=== PATIENT | female | born 1955 | race Caucasian/White ===

== ENCOUNTER 2016-11-22 08:26 | Outpatient (CLI) | payer OTHER | END 2016-11-22 08:27 | disposition home or self-care (01) | DX: M85.88 Other specified disorders of bone density and structure, other site (principal); Z79.899 Other long term (current) drug therapy ==

== ENCOUNTER 2016-11-22 08:48 | Outpatient (CLI) | payer OTHER | END 2016-11-22 08:49 | disposition home or self-care (01) | DX: M17.0 Bilateral primary osteoarthritis of knee (principal) ==

== ENCOUNTER 2017-02-21 13:57 | Outpatient (CLI) | payer OTHER ==
--- NOTE | 2017-02-22 20:12 | Mammography Report ---
DIGITAL SCREENING MAMMOGRAM: 02/21/2017 CLINICAL INDICATION: A 61-year-old with history of benign left breast biopsy for screening. COMPARISON: 02/2016, 11/2014, 11/2013, 10/2012, 10/2011, 10/2010, 09/2009, 06/2008 TECHNIQUE: Routine CC and MLO projections were obtained of the breasts. FINDINGS: Parenchymal tissue within both breasts is heterogeneously dense, which may lower the sensi tivity of mammography; however, there are no dominant masses, suspicious microcalcifications, or seco ndary signs of malignancy. In comparison to the previous studies, there are no significant changes. ASSESSMENT: NO MAMMOGRAPHIC EVIDENCE OF MALIGNANCY. NO SIGNIFICANT INTERVAL CHANGES. RECOMMENDATION: Screening mammography is recommended annually. BIRADS category 1 - negative. STANDARD QUALIFYING STATEMENTS 1. This examination was reviewed with the aid of Computed-Aided Detection (CAD). 2. A negative or benign imaging report should not delay biopsy if clinically suspicious findings are present. Consider surgical consultation if warranted. More than 5% of cancers are not identified by i maging. 3. Dense breasts may obscure an underlying neoplasm. JOB #: [id number] EXT JOB #:[id number]
== END 2017-02-21 13:58 | disposition home or self-care (01) ==
LOC: DI.S 13:57
PROVIDERS: ATTEND Registered Nurse
DX: Z12.31 Encounter for screening mammogram for malignant neoplasm of breast (principal)
CPT/HCPCS: 77067

== ENCOUNTER 2018-02-28 09:48 | Outpatient (CLI) | payer OTHER ==
--- NOTE | 2018-03-03 15:55 | Mammography Report ---
Procedure Date: 02/28/2018 Accession Number: [id number] / [id number] Procedure: LIZANDRO - Screening Mammo Dig Bilat CPT Code: FULL RESULT: EXAM: Screening Mammo Dig Bilat DATE: 02/28/2018 10:11 AM CLINICAL HISTORY: 62-year-old female with history of left breast surgery with benign results. TECHNIQUE: Bilateral CC and MLO views were obtained. COMPARISON: 02/21/2017, 02/22/2016, 12/02/2014, 11/20/2013. FINDINGS: The breasts demonstrate heterogeneously dense fibroglandular parenchyma bilaterally. No suspicious masses, clustered microcalcifications, or regions of architectural distortion are identified. IMPRESSION: Negative examination RECOMMENDATION: Routine annual screening unless otherwise clinically indicated. BIRADS CATEGORY 1: Negative STANDARD QUALIFYING STATEMENTS: 1. This examination was reviewed with the aid of Computer-Aided Detection (CAD). 2. A negative or benign imaging report should not delay biopsy if clinically suspicious findings are present. Consider surgical consultation if warrented. More than 5% of cancers are not identified by imaging. 3. Dense breasts may obscure an underlying neoplasm.
== END 2018-02-28 09:49 | disposition home or self-care (01) ==
LOC: DI 09:48
PROVIDERS: ATTEND Registered Nurse
DX: Z12.31 Encounter for screening mammogram for malignant neoplasm of breast (principal)
CPT/HCPCS: 77067

== ENCOUNTER 2019-08-31 08:23 | Outpatient (CLI) | payer OTHER ==
--- NOTE | 2019-08-31 10:12 | DEXA Report ---
Reason: AGE RELATED OSTEOPOROSIS W/O PATH FRAC Procedure Date: 08/31/2019 Accession Number: [id number] / [id number] Procedure: DEX - Dexa Spine and/or Hip CPT Code: Final Report FULL RESULT: EXAM: Dexa Spine and/or Hip DATE: 08/31/2019 8:41 AM CLINICAL HISTORY: History of osteopenia. History of steroid use and thyroid replacement therapy. History of Boniva treatment. TECHNIQUE: Dual energy x-ray absorptiometry (DXA) was performed on a [employer] System. Regions measured are the AP Spine, femoral neck, and if needed forearm. COMPARISON: 11/22/2016 In accordance with the International Society for Clinical Densitometry (ISCD) guidelines, data from previous exams may be reanalyzed using current recommendations and techniques. This is done to allow a more accurate basis for comparison with the current study. FINDINGS: The data for the lumbar spine is as follows: BMD (g/cm/cm) T-SCORE Z-SCORE REGION L1 0.960 -1.4 -1.1 L2 1.033 -1.4 -1.1 L3 1.079 -1.0 -0.7 L4 1.129 -0.6 -0.3 TOTAL 1.055 -1.0 -0.8 NOTE: All evaluable vertebrae are used for classification The data for the hip is as follows: BMD (g/cm/cm) T-SCORE Z-SCORE REGION Neck 0.877 -1.2 -0.5 TOTAL 1.024 0.1 0.4 NOTE: The femoral neck or total proximal femur, whichever is lowest, is used for classification. DXA RESULTS SUMMARY: Spine SCAN DATE AGE BMD CHANGE VS CHANGE VS PREVIOUS PREVIOUS % 08/31/2019 [age] 1.055 0.006 0.6 11/22/2016 61.3 1.049 * Denotes significant change at the 95% confidence level. Denotes dissimilar scan types or analysis methods. DXA RESULTS SUMMARY: Hip SCAN DATE AGE BMD CHANGE VS CHANGE VS PREVIOUS PREVIOUS % 08[age]31/2019 64.1 1.024 -0.012 -1.2 11/22/2016 61.3 1.036 * Denotes significant change at the 95% confidence level. Denotes dissimilar scan types or analysis methods. IMPRESSION: THE WHO CLASSIFICATION BASED ON THE INTERNATIONAL REFERENCE STANDARD IS OSTEOPENIA, REFERENCE LEFT FEMORAL NECK. THE FRACTURE RISK IS INCREASED. RECOMMENDATION: Patients with diagnosis of osteoporosis or osteopenia should have regular bone mineral density assessment. For those eligible for Medicare, routine testing is allowed once every 2 years. Testing frequency can be increased for patients who have rapidly progressing disease or for those who are receiving medical therapy to restore bone mass. COMMENT: World Health Organization (WHO) definitions for osteoporosis and osteopenia: NORMAL BMD: T-score at -1.0 or higher, fracture risk is low OSTEOPENIA BMD: T-score between -1.0 and -2.5, fracture risk is increased. OSTEOPOROSIS BMD: T-score at -2.5 or lower, fracture risk is high. National Osteoporosis Foundation recommends: 1. Obtain adequate dietary calcium (at least 1200 mg per day) and vitamin D (400-800 international units per day). 2. Participate, as appropriate, in regular weightbearing and muscle-strengthening exercise. 3. Avoid tobacco use and reduce alcohol and caffeine intake. 4. For more detailed information see the website at www.NOF.org.
== END 2019-08-31 08:24 | disposition home or self-care (01) ==
LOC: DI 08:23
PROVIDERS: ATTEND Registered Nurse
DX: M85.89 Other specified disorders of bone density and structure, multiple sites (principal)
CPT/HCPCS: 77080

== ENCOUNTER 2019-08-31 08:23 | Outpatient (CLI) | payer OTHER ==
--- NOTE | 2019-08-31 15:02 | Mammography Report ---
Reason: ROUTINE MAMMO Procedure Date: 08/31/2019 Accession Number: [id number] / [id number] Procedure: LIZANDRO - Screening Mammo w/Reed CPT Code: Final Report FULL RESULT: EXAM: Screening Mammo w/Reed DATE: 08/31/2019 9:07 AM CLINICAL HISTORY: History of left breast surgery. For routine screening. TECHNIQUE: (B) - Bilateral CC and MLO views were obtained. COMPARISON: 02/28/2018, 02/21/2017, 02/22/2016, 12/02/2014, 11/20/2013, 10/23/2012, 11/06/2011, 10/16/2011, 10/10/2010 and 09/30/2009 PARENCHYMAL PATTERN: (D) - The breasts demonstrate heterogeneously dense fibroglandular parenchyma bilaterally. FINDINGS: No significant interval change. There are no suspicious masses, calcifications, or areas of distortion. Nodular densities in both breasts are becoming more apparent due to increasing fatty replacement of the breast tissue. IMPRESSION: Negative examination. BI-RADS category 1. RECOMMENDATION: (ANNUAL) - Recommend routine annual screening mammography. BI-RADS CATEGORY: (1) - Negative. STANDARD QUALIFYING STATEMENTS: 1. This examination was not reviewed with the aid of Computer-Aided Detection (CAD). 2. A negative or benign imaging report should not preclude biopsy if clinically suspicious findings are present. 3. Dense breasts may obscure an underlying neoplasm. 4. This examination was reviewed with the aid of 3D breast imaging (tomosynthesis).
== END 2019-08-31 08:24 | disposition home or self-care (01) ==
LOC: DI 08:23
PROVIDERS: ATTEND Registered Nurse
DX: Z12.31 Encounter for screening mammogram for malignant neoplasm of breast (principal)
CPT/HCPCS: 77063; 77067

== ENCOUNTER 2020-09-08 12:40 | Outpatient (CLI) | payer OTHER ==
--- NOTE | 2020-09-09 09:54 | Mammography Report ---
BILATERAL DIGITAL SCREENING MAMMOGRAM 3D/2D: 09/08/2020 CLINICAL: Routine screening. Comparison is made to exams dated: 08/31/2019 mammogram, 02/28/2018 mammogram, and 02/21/2017 mammogram - [facility]. The tissue of both breasts is heterogeneously dense. This may lower the sensitivity of mammography. No significant masses, calcifications, or other findings are seen in either breast. There has been no significant interval change. IMPRESSION: NEGATIVE There is no mammographic evidence of malignancy. A 1 year screening mammogram is recommended. This exam was interpreted at Station ID: [id number]. NOTE: For mammograms, a report in lay terms will be sent to the patient. Approximately 15% of breast malignancies will not be visualized mammographically. In the management of a palpable breast mass, a negative mammogram must not discourage biopsy of a clinically suspicious lesion. Electronically Signed By: Matias Ramirez M.D. ar/penrad:09/08/2020 15:59:35 ACR BI-RADS Category 1: Negative 3341F PARENCHYMAL PATTERN: (D) - The breast(s) demonstrate(s) heterogeneously dense fibroglandular laine tineo. BI-RADS CATEGORY: (1) - 1 RECOMMENDATION: (ANNUAL) - Recommend routine annual screening mammography. [id number] 1 year screening LATERALITY: (B)
== END 2020-09-08 12:41 | disposition home or self-care (01) ==
LOC: DI.N 12:40
PROVIDERS: ATTEND Registered Nurse
DX: Z12.31 Encounter for screening mammogram for malignant neoplasm of breast (principal)

== ENCOUNTER 2022-01-03 09:47 | Outpatient (CLI) | payer MEDICARE, OTHER ==
--- NOTE | 2022-01-03 13:02 | Mammography Report ---
BILATERAL DIGITAL SCREENING MAMMOGRAM 3D/2D: 01/03/2022 CLINICAL: Routine screening. Comparison is made to exams dated: 09/08/2020 mammogram, 08/31/2019 mammogram, 02/28/2018 mammogram, an d 02/21/2017 mammogram - [facility]. There are scattered fibroglandular elements in both breasts. No significant masses, calcifications, or other findings are seen in either breast. There has been no significant interval change. IMPRESSION: NEGATIVE There is no mammographic evidence of malignancy. A 1 year screening mammogram is recommended. This exam was interpreted at Station ID: [id number]. NOTE: For mammograms, a report in lay terms will be sent to the patient. Approximately 15% of breast malignancies will not be visualized mammographically. In the management of a palpable breast mass, a negative mammogram must not discourage biopsy of a clinically suspicious lesion. Electronically Signed By: Quinton Almonte M.D. aty/penrad:01/03/2022 10:38:42 ACR BI-RADS Category 1: Negative 3341F PARENCHYMAL PATTERN: (A) - The breast(s) demonstrate(s) scattered fibroglandular densities. BI-RADS CATEGORY: (1) - 1 RECOMMENDATION: (ANNUAL) - Recommend routine annual screening mammography. [id number] 1 year screening LATERALITY: (B)
== END 2022-01-03 09:48 | disposition home or self-care (01) ==
LOC: DI.S 09:47
PROVIDERS: ATTEND Registered Nurse
DX: Z12.31 Encounter for screening mammogram for malignant neoplasm of breast (principal)

== ENCOUNTER 2023-01-04 09:21 | Outpatient (CLI) | payer MEDICARE, OTHER ==
--- NOTE | 2023-01-04 10:34 | DEXA Report ---
PROCEDURE: Dexa Spine and/or Hip INDICATIONS: OSTEOPOROSIS TECHNIQUE: Dual energy x-ray absorptiometry (DXA) was performed on a [employer] System. Regions measur ed are the AP Spine, femoral neck, and if needed forearm. COMPARISON: 08/31/2019, 11/22/2016 FINDINGS: Lumbar Spine: Bone Mineral Density 1.1 g/cm/cm,T score -0.7. Since the most recent prior study, there has been a s tatistically significant increase in bone mineral density by XXX percent. Left Femoral Neck: Bone Mineral Density 0.9 g/cm/cm, T score -0.9. Left Hip: Bone Mineral Density 1.0 g/cm/cm,T score 0.1. There has been no statistically significant change in b one mineral density since the prior study. (T score greater or equal to -1.0: NORMAL) (T score from -1.1 to -2.4: OSTEOPENIA) (T score less than or equal to -2.5 to: OSTEOPOROSIS) Impression: By WHO criteria, this patient has normal bone density. Interval statistical increase in bone minteral density of the lumbar spine. No statistical interval c hange in bone minteral density of the hip. Patients with diagnosis of osteoporosis or osteopenia should have regular bone mineral density assess ment. For those eligible for Medicare, routine testing is allowed once every 2 years. Testing frequ ency can be increased for patients who have rapidly progressing disease or for those who are receivin g medical therapy to restore bone mass. Reviewed by: Darrick Ivy on 01/04/2023 9:33 AM MICHELLE Approved by: Darrick Ivy on 01/04/2023 9:33 AM MICHELLE Station ID: [id number]
== END 2023-01-04 09:22 | disposition home or self-care (01) ==
LOC: DI 09:21
PROVIDERS: ATTEND Registered Nurse
DX: M81.0 Age-related osteoporosis without current pathological fracture (principal)

== ENCOUNTER 2023-01-04 09:21 | Outpatient (CLI) | payer MEDICARE, OTHER ==
--- NOTE | 2023-01-08 08:43 | Mammography Report ---
BILATERAL DIGITAL SCREENING MAMMOGRAM 3D/2D: 01/04/2023 CLINICAL: Routine screening. Comparison is made to exams dated: 01/03/2022 mammogram, 09/08/2020 mammogram, 08/31/2019 mammogram, mammogram, 02/21/2017 mammogram, and 02/22/2016 mammogram - [facility]. There are scattered areas of fibroglandular density in both breasts (category b / 25%-50% glandular t issue). No significant masses, calcifications, or other findings are seen in either breast. There has been no significant interval change. IMPRESSION: NEGATIVE There is no mammographic evidence of malignancy. A 1 year screening mammogram is recommended. Based on the Tyrer Cuzick model (a risk assessment model) the patients lifetime risk is 5.6% and her 10 year risk is 2.8%. According to the ACR, ACS, and NCCN guidelines, an annual breast MRI exam true g with mammogram is recommended if the patients lifetime risk is 20% or greater. This exam was interpreted at Station ID: Unknown. NOTE: For mammograms, a report in lay terms will be sent to the patient. Approximately 15% of breast malignancies will not be visualized mammographically. In the management of a palpable breast mass, a negative mammogram must not discourage biopsy of a clinically suspicious lesion. Electronically Signed By: Dario cross/jessrad:01/04/2023 10:33:18 Entry: aa - 01/08/2023 08:39:23 ACR BI-RADS Category 1: Negative 3341F PARENCHYMAL PATTERN: (A) - The breast(s) demonstrate(s) scattered fibroglandular densities. BI-RADS CATEGORY: (1) - 1 Mammogram [id number] 1 year screening LATERALITY: (B)
== END 2023-01-04 09:22 | disposition home or self-care (01) ==
LOC: DI 09:21
PROVIDERS: ATTEND Registered Nurse
DX: Z12.31 Encounter for screening mammogram for malignant neoplasm of breast (principal)

== ENCOUNTER 2024-03-03 08:44 | Outpatient (CLI) | payer MEDICARE, OTHER ==
--- NOTE | 2024-03-05 09:15 | Mammography Report ---
BILATERAL DIGITAL SCREENING MAMMOGRAM 3D/2D: 03/03/2024 CLINICAL: Routine screening. Comparison is made to exams dated: 01/04/2023 mammogram, 01/03/2022 mammogram, and 09/08/2020 mammogram - [facility]. There are scattered areas of fibroglandular density in both breasts (category b / 25%-50% glandular t issue). No significant masses, calcifications, or other findings are seen in either breast. There has been no significant interval change. IMPRESSION: NEGATIVE There is no mammographic evidence of malignancy. A 1 year screening mammogram is recommended. Based on the Tyrer Cuzick model (a risk assessment model) the patient's lifetime risk is 5.3% and her 10 year risk is 2.8%. According to the ACR, ACS, and NCCN guidelines, an annual breast MRI exam true g with mammogram is recommended if the patient's lifetime risk is 20% or greater. This exam was interpreted at Station ID: [id number]. NOTE: For mammograms, a report in lay terms will be sent to the patient. Approximately 15% of breast malignancies will not be visualized mammographically. In the management of a palpable breast mass, a negative mammogram must not discourage biopsy of a clinically suspicious lesion. Electronically Signed By: Matias [email or web address]/kirk:03/03/2024 11:32:10 letter sent: No_Letter ACR BI-RADS Category 1: Negative 3341F PARENCHYMAL PATTERN: (A) - The breast(s) demonstrate(s) scattered fibroglandular densities. BI-RADS CATEGORY: (1) - 1 RECOMMENDATION: (ANNUAL) - Recommend routine annual screening mammography. [id number] 1 year screening LATERALITY: (B)
== END 2024-03-03 08:45 | disposition home or self-care (01) ==
LOC: DI.S 08:44
PROVIDERS: ATTEND Registered Nurse
DX: Z12.31 Encounter for screening mammogram for malignant neoplasm of breast (principal); R92.323 Mammographic fibroglandular density, bilateral breasts

== ENCOUNTER 2024-04-17 10:01 | Outpatient (CLI) | payer MEDICARE, OTHER ==
--- NOTE | 2024-04-17 10:55 | Sleep Patient Instructions ---
Sleep Center Visit Summary - Patient Visit Information Reason for Visit: Initial consultation to establish care - Patient Instructions Additional Instructions: You will be completing a sleep study with oral appliance in place to check effectiveness. You will follow-up in the sleep care office after the sleep study is completed to hear the results and talk about therapy, if needed. You will be called by our office staff to schedule this appointment, but you may contact us with any questions. - Clinic Information Contact: [facility] [address] [place] [address] [email or web address] T: [phone]
--- NOTE | 2024-04-17 11:02 | SLEEP CARE CONSULTATION ---
Information from patient questionnaire entered by Marilu Recinos. I have reviewed and concur with the information entered by Marilu Recinos. This document represents the service I personally performed and the decisions made by me, Leeann Arreola ARNP. History of Present Illness Service Date and Time: 04/17/2024 1001 Reason for Visit: New patient, Previously diagnosed sleep apnea, Re-establish care Chief Complaint: reports: Unrefreshed sleep, Snoring, Excessive daytime sleepiness, Fatigue, Frequent awakenings at night Date of Onset: Years Usual bedtime: 10:30 - 11 PM Time it takes to fall asleep: Seconds up to 5 mins Snores at night: Yes Observed to quit breathing while asleep: No Sleeps alone due to snoring: No Number of times waking at night: 1 - 3 Reasons for waking at night: reports: Snoring, Gasping for air (rarely), Bathroom Toss, Turn, or Twitch while sleeping: Yes Recalls having dreams: Yes Usually gets out of bed at: 9 - 9:30 AM Feels refreshed in the morning: No (Better with snoreguard) Morning headache: No Sleepy or fatigued during the day: Yes Ever fallen asleep while driving: No (Close) Takes day naps: Yes Dreams during day naps: No Prior sleep studies: Yes Year and Where: 2009 [facility] Type of Sleep Study: Polysomnography Additional HPI information: CATINA STARKS was diagnosed to have moderate, AHI 16.4, obstructive sleep apnea-hypopnea syndrome in 2009 and comes in today to re-establish care for oral appliance therapy. She just had her oral appliance replaced about a week ago. She still has some unrefreshed sleep and daytime fatigue. She has severe bruxism and has broken a few oral appliances since her first in 2013. - Parasomnia Symptoms Ever been unable to move upon waking from sleep: No Walks in sleep: No Talks in sleep: Yes Ever acted out dreams in sleep: No Ever felt weak in the knees when startled or emotional: No Bothered by creepy, crawly, restless sensations in legs: Yes Problems with memory or concentration: No CPAP Compliance Data Compliance data discussion: She is using her oral appliance nightly and sleeping for about 9-10 hours. Subjective On therapy, patient: reports: sleeping better (a little bit more), more rested overall, drowsiness while driving Initial [place] Sleepiness Scale score: 17 (in 2009) Current [place] Sleepiness Scale score: 17 (04/17/2024) Past Medical History Past Medical History: reports: Anxiety, Asthma, Depression, Other (Elevated cholesterol; pre-diabetes) Social History The patient is a retired nurse and dentist. Patient is and lives in [place]. Have you smoked in the past 12 months: No Alcohol use: Yes Alcohol amount and frequency: 3 - 4 glasses a week Caffeine use: Yes Caffeine amount and frequency: 1 a day Family History Family history of sleep disordered breathing: Yes Family Hx Sleep Apnea: Mother: Snoring, Sleep apnea - Treated, Sibling: Snoring, Sleep apnea - Treated Allergies and Home Medications Known drug allergies: Yes (Sulfa) Drug allergies reviewed: Yes Home medication list reviewed: Yes (as listed) Allergy and home medication list: Allergies Sulfa (Sulfonamide Antibiotics) Allergy (Verified 04/17/24 10:49) Rash Home Medications Lexapro See Rx Instructions .ROUTE .COMPLEX 04/17/24 [History] Rosuvastatin Calcium See Rx Instructions .ROUTE .COMPLEX 04/17/24 [History] Tirosint See Rx Instructions .ROUTE .COMPLEX 04/17/24 [History] Vitamin D3 See Rx Instructions .ROUTE .COMPLEX 04/17/24 [History] metFORMIN See Rx Instructions .ROUTE .COMPLEX 04/17/24 [History] Review of Systems Cardiovascular: denies: high blood pressure Respiratory: reports: shortness of breath, wheeze Gastrointestinal: reports: difficulty swallowing, diarrhea, abdominal pain Neurological: denies: headaches Psychiatric: reports: anxiety, depression Ear/Nose/Throat: reports: nasal congestion, dry mouth/throat, wisdom teeth removed. denies: tonsillectomy Endocrine: reports: history of goiter, sluggishness (/tired) Musculoskeletal: reports: neck pain, back pain Immunologic: reports: sneezing (/runny nose), allergies to food or environment (to environment) Physical Exam Vital signs obtained and entered by: Leeann Alba NP Blood Pressure: 132/67 Cuff size: long (left arm) Heart Rate: 58 O2 Saturation: 98 Height: 5 ft 8.5 in Weight: 221 lb Body Mass Index: 33.0 BMI Classification: Obese Neck circumference: 16 Mouth and throat: narrow oropharynx Soft palate: long Hard palate: normal Uvula: normal Uvula visualization: 0% Mallampati Class IV Tongue: normal in size Tonsils: small Neck: normal w/o lymphadenopathy or thyromegaly Heart: regular rate and rhythm Lungs: clear bilaterally Impression and Plan 1. Obstructive Sleep Apnea-Hypopnea Syndrome, moderate. She has been using an oral appliance since 2013. She does feel that when using the oral appliance therapy she has better sleep quality and is more rested overall. However, she still has daytime sleepiness and fatigue. She says she could not sleep for 10 hours and still not fully rested. She has only been using her oral appliance again for the last week or so and has felt slight improvement overall. She has never had a follow-up sleep study with the oral appliance to see how effective it has been doing. I will order a PSG with the oral appliance so we can check effectiveness and see her in follow-up after the study. Patient's apnea severity and rationale for treatment to reduce apnea, improve sleep quality and reduce cardiovascular and cerebrovascular events was reviewed. I also reviewed the benefit of consistent device use of CPAP for depression/anxiety. 2. Obesity, unspecified. Currently patients BMI is 33. Obesity increases the risk of apnea, CPAP pressure requirements and overall health risks especially cardiovascular and diabetes. Thus patient is advised to lose weight. * Continue oral appliance * PSG to evaluate effectiveness of oral appliance * Attempt to lose weight * Call this office if any problems * Return for follow up after sleep study with oral appliance, or sooner if concerns arise This note may have been all or partially generated using voice recognition software. Although every effort is made to edit content, vac press operator errors may occur. Occasional wrongword or "soundalike" substitutions may have occurred due to the inherent limitations of voice recognition software. Please read the note carefully and recognize, using context, where these substitutions have occurred. Counseling Topics: Weight loss health impact Plan: PSG with oral appliance Visit Type: In Office Time Spent with Patient (minutes): 33 Provider Statement: I spent 100% of the Face to Face Visit with the patient with greater than 50% spent counseling the patient and coordination of care.
[2024-04-17 11:08] VITALS: BP 132/67; O2SAT 98
== END 2024-04-17 10:02 | disposition home or self-care (01) ==
LOC: SC 10:01
PROVIDERS: ATTEND Nurse Practitioner Family
DX: G47.33 Obstructive sleep apnea (adult) (pediatric) (principal); E66.9 Obesity, unspecified; Z68.33 Body mass index [BMI] 33.0-33.9, adult
CPT/HCPCS: 99203; G0463; 99212